=== PATIENT | female | born 1985 | race Caucasian/White ===

== ENCOUNTER 2016-09-01 17:58 | Emergency (ER) | payer SELFPAY ==
[~2016-09-01] VITALS: Ht 152.4 cm; Wt 50.4 kg
[2016-09-01 18:00] VITALS: BP 114/69; PULSE 88; RESP 16; TEMP 98.8; O2SAT 99
--- NOTE | 2016-09-01 19:00 | PD ---
HPI . Back pain Chief Complaint: Back/ Neck Pain or Injury Time Seen by Provider: 18:54 Travel History International Travel<30 days: No Contact w/Intl Traveler<30days: No Traveled to known affect area: No History of Present Illness HPI Patient presents with the chief complaint of a back injury. She was reportedly sitting in a chair fell backward striking her mid back. She now comes in complaining with back pain. She rates it as 9/10. Pain is exacerbated by movement. In addition, the patient reports vaginal bleeding. She reports some mild lower abdominal pain. She has recently received a Depo-Provera shot. [facility] Past Medical History ?: Not Social History Tobacco Use: No Allergies-Medications (Allergen,Severity, Reaction): Coded Allergies: No Known Allergies (Unverified , 09/01/16) Reported Meds & Prescriptions Reported Meds & Active Scripts Active No Active Prescriptions or Reported Medications Review of Systems ROS Limitations: Language Barrier General / Constitutional: No: Fever, Chills Genitourinary: Positive: Pelvic Pain, Vaginal Bleeding, No: Urgency, Frequency , Dysuria Musculoskeletal: Positive: Myalgias Physical Exam Narrative GENERAL: Awake and alert and in no acute distress. SKIN: Warm and dry. HEAD: Atraumatic. Normocephalic. EYES: Pupils equal and round. NECK: Trachea midline. CARDIOVASCULAR: Regular rate and rhythm. RESPIRATORY: No accessory muscle use. ABDOMEN: Soft with mild suprapubic tenderness. MUSCULOSKELETAL: No obvious deformities. No edema. Tender in the upper part of the lumbar back. NEUROLOGICAL: Awake and alert. No obvious cranial nerve deficits. Motor grossly within normal limits. Normal speech. PSYCHIATRIC: Appropriate mood and affect; insight and judgment normal. Data Data Last Documented VS Vital Signs Date Time Temp Pulse Resp B/P Pulse Ox O2 Delivery O2 Flow Rate FiO2 09/01/16 18:00 98.8 88 16 114/69 99 Room Air Orders Spine, Lumbar - Ltd (Ap & Lat) (09/01/16 18:26) Urinalysis - C+S If Indicated (09/01/16 18:56) Ed Urine Pregnancytest Poc (09/01/16 18:56) Labs Laboratory Tests Test 09/01/16 19:20 Urine Color YELLOW Urine Turbidity CLEAR Urine pH 5.5 Urine Specific [place] 1.027 Urine Protein NEG mg/dL Urine Glucose (UA) NEG mg/dL Urine Ketones NEG mg/dL Urine Occult Blood MOD Urine Nitrite NEG Urine Bilirubin NEG Urine Urobilinogen LESS THAN 2.0 MG/DL Urine Leukocyte Esterase NEG Urine RBC LESS THAN 1 /hpf Urine WBC 1 /hpf Urine Squamous Epithelial 1 /hpf Cells Urine Hyaline Casts 1 /lpf Urine Mucus FEW /lpf Microscopic Urinalysis Comment CULT NOT INDICATED MDM Medical Decision Making Medical Screen Exam Complete: Yes Emergency Medical Condition: Yes Differential Diagnosis Differential diagnosis includes but is not limited to muscular low back pain, DDD, spinal stenosis, epidural abscess, sciatica, kidney infection or stone. Differential diagnosis of abdominal pain includes but is not limited to gastritis, pancreatitis, hepatitis, gastroenteritis, gallbladder disease, constipation, urinary retention, UTI, peptic ulcer disease, diverticulitis or appendicitis Narrative Course Patient presents complaining with a back injury. X-ray of her back is pending. Patient is also complaining with some mild suprapubic pain and abnormal menstrual bleeding. She is on Depo-Provera. Abdominal exam is benign. UA and test are pending. HCG negative. U/A is negative. Lumbar spine films are negative per the radiologist's interpretation. The x- rays were independently viewed by me. Diagnosis Primary Impression: Back contusion Qualified Code: S20.229A - Back contusion, unspecified laterality, initial encounter Additional Impressions: Suprapubic pain Metrorrhagia Patient Instructions: Contusion in Adults (DC), General Instructions Med/Other Pt SpecificInfo: Prescription(s) given Scripts Ibuprofen 800 Mg Hwo950 Mg PO Q8H PRN (Pain/Inflammation) #60 TAB Ref 0 Prov:Jemma Butler MD 09/01/16 Tramadol (Ultram)50 Mg Tab50 Mg PO Q4H PRN (PAIN) #12 TAB Ref 0 Prov:Jemma Butler MD 09/01/16 Disposition: 01 DISCHARGE HOME Condition: Stable Jemma Butler MD September 01, 2016 19:00
[2016-09-01 19:34] LABS: BLOOD, URINE MOD (NEG); COMMENT (UR) CULT NOT INDICATED; CULTURE IF INDICATED CULT NOT INDICATED; GLUCOSE,URINE NEG (NEG); HYALINE CAST, URINE 1 /lpf (RARE); KETONE, URINE NEG (NEG); MUCUS URINE FEW /lpf (OCC); NITRITE,URINE NEG (NEG); PH, URINE 5.5 (5.0-8.5); SQUAMOUS EPITHELIAL CELL URINE 1 /hpf (0-5); URINE COLOR YELLOW (YELLW/STRAW)
--- NOTE | 2016-09-01 19:46 | RADRPT ---
EXAM DATE/TIME: 09/01/2016 18:48 [facility] COMPARISON: No previous studies available for comparison. INDICATIONS : Lower back pain. Patient fell off a chair onto her back today. MEDICAL HISTORY : None. SURGICAL HISTORY : None. ENCOUNTER: Initial ACUITY: 1 day PAIN SCORE: 10/10 LOCATION: lower back. FINDINGS: Two view examination was performed. There are five non-rib bearing vertebral bodies. The vertebral bodies are in normal alignment without evidence of subluxation or scoliosis. The disc spaces are aydin ntained. The pedicles are intact. Bony mineralization is normal. No fracture is identified. CONCLUSION: Unremarkable limited examination of the lumbar spine. Kiet Graham MD on September 01, 2016 at 19:43 Board Certified Radiologist. This report was verified electronically.
[2016-09-01] MEDS ORDERED: IBUP800T23 PO (19:58)
[2016-09-01] MEDS ORDERED: ULTR50TA5 PO (19:58)
== END 2016-09-01 20:22 | disposition home or self-care (01) ==
LOC: NEPD 17:58
DX: S20.229A Contusion of unspecified back wall of thorax, initial encounter (principal); N92.1 Excessive and frequent menstruation with irregular cycle; W07.XXXA Fall from chair, initial encounter
CPT/HCPCS: 72100; 81001; 84703; 99284